=== PATIENT | male | born 1975 | race Caucasian/White ===

== ENCOUNTER 2016-11-02 07:15 | Emergency (ER) | payer OTHER ==
[2016-11-02 07:24] VITALS: BP 130/80
--- NOTE | 2016-11-02 07:31 | ERNOTE ---
Medical Problem HPI - Narrative Date of Service: 11/02/16 - General Chief Complaint: Nausea/Vomiting Time Seen by Provider: 11/02/16 07:20 Source: patient, family Exam Limitations: no limitations - Immun/Allergies/Home Medications Immunizations: IMMUNIZATION HX Immunizations Up to Date Yes History of Influenza Vaccine Yes Hx Pneumococcal Vaccination Yes Allergies/Adverse Reactions: Allergies Penicillins Allergy (Verified 11/02/16 07:25) Home Medications: HOME MEDICATIONS Cetirizine HCl/Pseudoephedrine [Zyrtec-D Tablet] 1 each PO BID 11/02/16 [Last Taken Unknown] Citalopram Hydrobromide [Celexa] 40 mg PO DAILY 11/02/16 [Last Taken Unknown] LORazepam [Ativan] 1 mg PO BID PRN 11/02/16 [Last Taken Unknown] Metoprolol Succinate 25 mg PO BID 11/02/16 [Last Taken Unknown] Ondansetron [Zofran Odt] 4 mg PO Q6H PRN #10 tab 11/02/16 [Last Taken Unknown] Topiramate [Topamax] 100 mg PO HS 11/02/16 [Last Taken Unknown] hydrOXYzine PAMOATE [Hydroxyzine Pamoate] 25 mg PO DAILY PRN 11/02/16 [Last Taken Unknown] - History of Present History Narrative: PT STARTED WITH CHILLS AND V X 3 AND D X4 THIS A.M. AT 0600. NO BLOOD IN HIS STOOLS. NO KNOWN CONTACTS. NO ONE ELSE IN THE FAMILY IS ILL. HE JUST RETURN WEDNESDAY FROM VACATION TO [place] WITH HIS . IS FINE. DENIES SUSPICIOUS FOOD OR DRINK . NO NEW MEDICATION . Review of Systems - Review of Systems Constitutional: Present: See HPI Gastrointestinal/Abdominal: Present: See HPI, abdominal pain - SOME MILD ABDOMINAL CRAMPS Genitourinary: Present: no symptoms reported Musculoskeletal: Present: no symptoms reported Skin: Present: no symptoms reported Neurological: Present: no symptoms reported Endocrine: Present: no symptoms reported Hematologic/Lymphatic: Present: swollen glands Psych: Present: no symptoms reported - Patient's Past Medical History Patient History - Medical: No pertinent hx Patient History - Cardiac/Respiratory: Hypertension Patient History - Cancer: No Hx of Cancer Patient History - Surgical Procedures: T & A Patient History - Other: None - Social History Living Situations: significant other Abuse History: No History of abuse Psych History: Hx of Anxiety, Hx of Depression Smoking Status: Current every day smoker Alcohol Use: none Drug Use: none - Immunizations Immunizations Up to Date: Yes Hx Pneumococcal Vaccination: Yes History of Influenza Vaccine: Yes Physical Exam - Physical Exam General Appearance: Present: wd/wn, alert, no apparent distress Respiratory: Present: no respiratory distress, normal breath sounds, no accessory muscle use, chest nontender, lungs clear Cardiovascular/Chest: Present: regular rate, rhythm, no murmur, normal peripheral pulses Gastrointestinal/Abdominal: Present: normal bowel sounds, nontender, nondistended, soft, no organomegaly Back Exam: Present: normal inspection, normal range of motion, no CVA tenderness Neurological Exam: Present: alert, oriented, normal mood/affect, no motor/ sensory deficits ED Progress - Vital Signs Vital Signs: Vital Signs 11/02/16 07:20 Temperature 35.9 C L Pulse Rate 89 Respiratory 14 Rate Blood Pressure 130/80 O2 Sat by Pulse 95 Oximetry - Progress/Reassessment Chief Complaint: Nausea/Vomiting Departure - Departure Clinical Impression: Gastroenteritis Disposition: Home Follow Up Needed Condition: Fair Instructions: Contact Precautions, Rehydration, Adult, Viral Gastroenteritis, Adult, [id number] Additional Instructions: CLEAR LIQUID DIET UNTIL IMPROVING THEN GRADUALLY RESUME REGULAR DIET. GOOD HYGEINE TO PREVENT SPREAD IN THE FAMILY. ZOFRAN TO HELP CONTROL VOMITING RECHECK IF WORSE OR NOT IMPROVING IN 1-2 DAYS. Referrals: Joe Junior DO [Primary Care Provider] - Prescriptions: Ondansetron [Zofran Odt] 4 mg PO Q6H PRN #10 tab PRN Reason: Vomiting
== END 2016-11-02 07:50 | disposition home or self-care (01) ==
LOC: ER 07:15
DX: K52.9 Noninfective gastroenteritis and colitis, unspecified (principal); F17.200 Nicotine dependence, unspecified, uncomplicated